=== PATIENT | male | born 1985 | race Caucasian/White ===

== ENCOUNTER 2020-12-22 15:08 | Emergency (ER) | payer BC, OTHER ==
[~2020-12-22 15:08] MED LIST: ANUSOL-HC CREAM30 GM PR; CALCIUM + D3 E1 EACH PO; CEFUROXIME500 MG PO; COLACE100 MG PO; FLEXERIL 10 MG10 MG PO; LAXATIVE SUPPO1 EACH PR; NAPROSYN500 MG PO; NORCO 5-325 TA1 EACH PO; OMEPRAZOLE40 MG PO; ONE DAILY FOR1 EAC1 PO; TESTOSTERON100 MG/ML IM
== END 2020-12-22 18:25 | disposition home or self-care (01) ==
LOC: ER1 15:08
DX: S13.4XXA Sprain of ligaments of cervical spine, initial encounter (principal); S23.3XXA Sprain of ligaments of thoracic spine, initial encounter; S33.5XXA Sprain of ligaments of lumbar spine, initial encounter; S80.02XA Contusion of left knee, initial encounter; S40.022A Contusion of left upper arm, initial encounter; S80.12XA Contusion of left lower leg, initial encounter; V49.40XA Driver injured in collision with unspecified motor vehicles in traffic accident, initial encounter; Y92.410 Unspecified street and highway as the place of occurrence of the external cause
CPT/HCPCS: 70450; 72072; 72100; 72125; 73564; 99284